=== PATIENT | female | born 1965 | race Two or more races ===

== ENCOUNTER 2017-02-17 18:58 | Emergency (ER) | payer OTHER, SELFPAY ==
[~2017-02-17] VITALS: Ht 144.8 cm; Wt 51.3 kg
[2017-02-17] MEDS ORDERED: PANTOPRAZOLE 40 MG IV ONE (19:29)
[2017-02-17] MEDS ORDERED: MAALOX/HYOSCYAMINE/LIDOCAINE 45 ML BTL ONE (19:29)
[2017-02-17] MEDS ORDERED: MAALOX/HYOSCYAMINE/LIDOCAINE 45 ML BTL PO ONE (19:30)
[2017-02-17] MEDS ORDERED: SODIUM CHLORIDE 0.9% 1,000ML IVBOLUS ONE (19:30)
[2017-02-17] MEDS ORDERED: SODIUM CHLORIDE FLUSH 10ML SYR IVF ONE (19:30)
[2017-02-17] MEDS ORDERED: PANTOPRAZOLE 40 MG IV IVPush ONE (19:30)
[2017-02-17] MEDS ORDERED: ONDANSETRON 2MG/ML, 2ML ONE (19:35)
[2017-02-17 19:47] LABS: ASPARTATE AMINO TRANSFERASE 131 U/L (15-37); BLOOD UREA NITROGEN 13 mg/dL (7-18)
[2017-02-17 20:00] LABS: HEMATOCRIT 29.9 % (34.6-47.8); HEMOGLOBIN 10.1 g/dL (11.7-16.4); WHITE BLOOD COUNT 6.4 x10^3/uL (3.4-10)
[2017-02-17 21:11] VITALS: BP 143/78
== END 2017-02-17 22:06 | disposition home or self-care (01) ==
LOC: ED 19:54
DX: K29.21 Alcoholic gastritis with bleeding (principal)
CPT/HCPCS: 36415; 76700; 80053; 85025; 85610; 85730; 96361; 96374; 99285; C9113; J7030

== ENCOUNTER 2019-02-10 21:12 | Inpatient (IN) | payer OTHER ==
[~2019-02-10] VITALS: Ht 149.9 cm; Wt 57.5 kg
[2019-02-10 22:32] LABS: MICROSCOPIC AUTO
[2019-02-10 22:35] LABS: CULTURE INDICATED? YES
[2019-02-10 22:37] LABS: ALANINE AMINOTRANSFERASE 141 U/L (12-78); ALBUMIN 2.8 g/dL (3.4-5.0); ANION GAP 4 mmol/L (5-15); CALCIUM 8.5 mg/dL (8.5-10.1); CHLORIDE 110 mmol/L (98-107); CREATININE 0.53 mg/dL (0.55-1.02)
[2019-02-10 22:39] LABS: ALKALINE PHOSPHATASE 328 U/L (45-117); BILIRUBIN,TOTAL 1.2 mg/dL (0.2-1.0); TOTAL PROTEIN 7.9 g/dL (6.4-8.2)
[2019-02-10 23:11] LABS: BASOPHILS # (AUTO) 0.03 x10^3/uL (0-0.1); BASOPHILS % (AUTO) 1 % (0-1); EOSINOPHILS % (AUTO) 2 % (1-7); LYMPHOCYTES # (AUTO) 1.78 x10^3/uL (1-3.4); LYMPHOCYTES % (AUTO) 43 % (22-44); MD SCAN; MEAN CORPUSCULAR HEMOGLOBIN 32.6 pg (27.0-34.8); MEAN CORPUSCULAR HGB CONC 33.8 g/dL (32.4-35.8); MEAN CORPUSCULAR VOLUME 96.3 fL (80-100); MEAN PLATELET VOLUME 9.7 fL (7.4-10.4); MONOCYTES # (AUTO) 0.43 x10^3/uL (0.2-0.8); MONOCYTES % (AUTO) 10 % (2-9); NEUTROPHILS # (AUTO) 1.83 x10^3/uL (1.8-6.8); NEUTROPHILS % (AUTO) 44 % (42-75); PLATELET COUNT 62 x10^3/uL (130-400); RED CELL DISTRIBUTION WIDTH 16.9 % (9.6-15.2)
[2019-02-10] MEDS ORDERED: ONDANSETRON ODT 4 MG ONE (23:20)
[2019-02-10] MEDS ORDERED: FAMOTIDINE 20 MG TABLET ONE (23:20)
[2019-02-10] MEDS ORDERED: MAALOX/HYOSCYAMINE/LIDOCAINE 45 ML BTL ONE (23:21)
--- NOTE | 2019-02-10 23:23 | NUR ---
PT IN GOWN IN [facility]. PT MEDICATED PER JUN. PT VSS AT THIS TIME.
[2019-02-10 23:28] LABS: TROPONIN I < 0.015 ng/mL (0.000-0.045)
[2019-02-10] MEDS ORDERED: FAMOTIDINE 20 MG TABLET PO ONE (23:30)
[2019-02-10] MEDS ORDERED: ONDANSETRON ODT 4 MG PO ONE (23:30)
[2019-02-10] MEDS ORDERED: MAALOX/HYOSCYAMINE/LIDOCAINE 45 ML BTL PO ONE (23:30)
--- NOTE | 2019-02-11 00:13 | NUR ---
PT BACK FROM US AT THIS TIME.
--- NOTE | 2019-02-11 01:39 | NUR ---
TASK RN: PT SITTING UP IN GURNEY, AWAKE/ALERT. SO AT BEDSIDE. PT UPDATED TO POC (RECHECK/DISPO) AND DEMONSTRATES UNDERSTANDING.
--- NOTE | 2019-02-11 02:41 | NUR ---
IV ACCESS INITIATED. PT VERBALIZES UNDERSTANDING OF NPO. PT EDUCATED ON TRANSFER TO FLOOR AND OVERNIGHT ADMISSION AND VERBALIZES UNDERSTANDING. CALL LIGHT IS WITHIN REACH AT THIS TIME.
--- NOTE | 2019-02-11 02:46 | NUR ---
REPORT OF PT TO MARGIE SCALES. ALL QUESTIONS ANSWERED. TECH PAGED FOR TRANSPORT OF PT FROM ER TO FLOOR AT THIS TIME.
[2019-02-11] MEDS ORDERED: SODIUM CHLORIDE 0.9% 1,000 ML IV SCH (02:59)
[2019-02-11] MEDS ORDERED: BISACODYL 10 MG SUPP PR PRN (03:00)
[2019-02-11] MEDS ORDERED: morphine SULFATE 10 MG/ML, 1ML IVPush PRN ×2 (03:00→09:30)
[2019-02-11] MEDS ORDERED: ONDANSETRON ODT 4 MG PO PRN (03:00)
[2019-02-11] MEDS ORDERED: ACETAMINOPHEN 325 MG TABLET PO PRN ×2 (03:00→09:30)
[2019-02-11] MEDS ORDERED: hydrALAzine 20 MG/ML, 1ML IVPush PRN (03:00)
[2019-02-11] MEDS ORDERED: POLYETHYLENE GLYCOL 17 GM PACKET PO PRN (03:00)
[2019-02-11] MEDS ORDERED: DOCUSATE 100 MG CAPSULE PO PRN (03:00)
[2019-02-11] MEDS ORDERED: ONDANSETRON 2MG/ML, 2ML IVPush PRN (03:00)
[2019-02-11] MEDS ORDERED: PROMETHAZINE 25 MG/ML, 1ML IM PRN (03:00)
[2019-02-11] MEDS ORDERED: OXYcodone IR 5MG TABLET PO PRN ×2 (03:00→11:00)
[2019-02-11 03:23] LABS: INTERNATIONAL NORMALIZED RATIO 1.17 (0.93-1.1); PROTHROMBIN TIME 12.2 Seconds (9.6-11.5)
[2019-02-11 03:24] VITALS: BP 145/71
[2019-02-11 03:28] LABS: HEMOGLOBIN A1C 4.8 % (4.2-6.3)
[2019-02-11 03:31] LABS: FREE T4 (FREE THYROXINE) 0.91 ng/dL (0.76-1.46)
[2019-02-11 06:54] VITALS: BP 126/78
[2019-02-11] MEDS ORDERED: HEPARIN 5,000 UNITS/ML, 1ML SQ SCH (09:30)
[2019-02-11] MEDS: LACTOBACILLUS CHEW TABLET PO SCH ×3 (09:30→20:20)
[2019-02-11] MEDS ORDERED: SINCALIDE (KINEVAC) 5 MCG ONE (10:36)
[2019-02-11 12:27] LABS: ALANINE AMINOTRANSFERASE 160 U/L (12-78); ALBUMIN 2.9 g/dL (3.4-5.0); ANION GAP 5 mmol/L (5-15); CALCIUM 8.4 mg/dL (8.5-10.1); CHLORIDE 110 mmol/L (98-107); CREATININE 0.56 mg/dL (0.55-1.02)
[2019-02-11 12:29] LABS: ALKALINE PHOSPHATASE 290 U/L (45-117); BILIRUBIN,TOTAL 1.8 mg/dL (0.2-1.0); TOTAL PROTEIN 8.3 g/dL (6.4-8.2)
[2019-02-11 12:43] VITALS: BP 127/64
[2019-02-11 12:52] LABS: BASOPHILS # (AUTO) 0.02 x10^3/uL (0-0.1); BASOPHILS % (AUTO) 0 % (0-1); EOSINOPHILS # (AUTO) 0.04 x10^3/uL (0-0.4); EOSINOPHILS % (AUTO) 1 % (1-7); LYMPHOCYTES # (AUTO) 1.76 x10^3/uL (1-3.4); LYMPHOCYTES % (AUTO) 41 % (22-44); MD SCAN; MEAN CORPUSCULAR HEMOGLOBIN 32.4 pg (27.0-34.8); MEAN CORPUSCULAR HGB CONC 34.2 g/dL (32.4-35.8); MEAN CORPUSCULAR VOLUME 94.8 fL (80-100); MEAN PLATELET VOLUME 8.8 fL (7.4-10.4); MONOCYTES # (AUTO) 0.34 x10^3/uL (0.2-0.8); MONOCYTES % (AUTO) 8 % (2-9); NEUTROPHILS # (AUTO) 2.17 x10^3/uL (1.8-6.8); NEUTROPHILS % (AUTO) 50 % (42-75); PLATELET COUNT 56 x10^3/uL (130-400); RED BLOOD COUNT 4.26 x10^6/uL (3.82-5.3)
[2019-02-11] MEDS: SODIUM CHLORIDE 0.9% 1,000 ML IV SCH (13:06)
[2019-02-11] MEDS: CEFTRIAXONE PMX 1GM/50ML 50 ML IV SCH (14:48)
[2019-02-11 19:46] VITALS: BP 131/78
[2019-02-12 01:03] VITALS: BP 119/78
[2019-02-12] MEDS: SODIUM CHLORIDE 0.9% 1,000 ML IV SCH (02:36)
[2019-02-12] MEDS ORDERED: SODIUM CHLORIDE 0.9% 1,000 ML IV SCH (02:59)
[2019-02-12 06:06] LABS: MEAN CORPUSCULAR HEMOGLOBIN 32.8 pg (27.0-34.8); MEAN CORPUSCULAR HGB CONC 33.7 g/dL (32.4-35.8); MEAN CORPUSCULAR VOLUME 97.1 fL (80-100); MEAN PLATELET VOLUME 9.6 fL (7.4-10.4); PLATELET COUNT 56 x10^3/uL (130-400); RED BLOOD COUNT 3.76 x10^6/uL (3.82-5.3); RED CELL DISTRIBUTION WIDTH 17.1 % (9.6-15.2)
[2019-02-12 06:13] LABS: ALBUMIN 2.4 g/dL (3.4-5.0); ANION GAP 4 mmol/L (5-15); CALCIUM 7.7 mg/dL (8.5-10.1); CHLORIDE 110 mmol/L (98-107)
[2019-02-12 06:17] LABS: ALANINE AMINOTRANSFERASE 125 U/L (12-78); ALKALINE PHOSPHATASE 216 U/L (45-117); BILIRUBIN,TOTAL 1.7 mg/dL (0.2-1.0); CHOL/HDL RATIO 5.2; CHOLESTEROL, TOTAL 130 mg/dL (140-239); CREATININE 0.47 mg/dL (0.55-1.02); HDL CHOL % 19 % (28-40); HDL CHOLESTEROL (DIRECT) 25 mg/dL (40-60); LDL CHOLESTEROL,CALCULATED 89 mg/dL (54-169); LDL/HDL RATIO 3.6 (0.5-3.0); TOTAL PROTEIN 6.6 g/dL (6.4-8.2); TRIGLYCERIDES 79 mg/dL (50-200); VLDL CHOLESTEROL 16 mg/dL (0-25)
[2019-02-12 06:18] LABS: BASOPHILS # (AUTO) 0.02 x10^3/uL (0-0.1); BASOPHILS % (AUTO) 1 % (0-1); EOSINOPHILS # (AUTO) 0.07 x10^3/uL (0-0.4); EOSINOPHILS % (AUTO) 2 % (1-7); LYMPHOCYTES # (AUTO) 1.52 x10^3/uL (1-3.4); LYMPHOCYTES % (AUTO) 45 % (22-44); MD SCAN; MONOCYTES # (AUTO) 0.29 x10^3/uL (0.2-0.8); MONOCYTES % (AUTO) 8 % (2-9); NEUTROPHILS # (AUTO) 1.52 x10^3/uL (1.8-6.8); NEUTROPHILS % (AUTO) 45 % (42-75)
[2019-02-12 07:19] VITALS: BP 129/76
[2019-02-12] MEDS: LACTOBACILLUS CHEW TABLET PO SCH ×2 (08:45→14:56)
[2019-02-12] MEDS ORDERED: ACID1TAB7 PO (10:24)
[2019-02-12] MEDS ORDERED: ACET325T26 PO (10:24)
[2019-02-12] MEDS ORDERED: CEFT1FRO2 IA (10:24)
[2019-02-12 12:55] VITALS: BP 131/81
[2019-02-12] MEDS: CEFTRIAXONE PMX 1GM/50ML 50 ML IV SCH (14:00)
== END 2019-02-12 16:34 | disposition short-term general hospital (02) | DRG 446 ==
LOC: ED 02-11 01:58 → EDIP 02-11 02:06 → 3N 02-11 03:01
PROVIDERS: ADMIT Internal Medicine; ATTEND Internal Medicine
DX: K81.0 Acute cholecystitis (principal); D69.59 Other secondary thrombocytopenia; E83.42 Hypomagnesemia; G47.00 Insomnia, unspecified; I10 Essential (primary) hypertension; K76.9 Liver disease, unspecified; Z90.710 Acquired absence of both cervix and uterus; Z88.0 Allergy status to penicillin
CPT/HCPCS: 36415; 71046; 74022; 76700; 78227; 80053; 80061; 80307; 81001; 83036; 83690; 83735; 84439; 84443; 84484; 85025; 85610; 87086; 93005; 99285; G0378; J0696; Q0162; A9537; J2805; J7030